=== PATIENT | male | born 1955 | race American Indian/Alaskan Native ===

== ENCOUNTER 2018-08-13 20:49 | Inpatient (IN) | payer MEDICAID ==
[2018-08-13] MEDS ORDERED: ASPIRIN PO ONE (21:02)
--- NOTE | 2018-08-13 21:06 | Emergency Department Report ---
ED General Adult HPI - General Chief complaint: Arrhythmia/Palpitations Stated complaint: CHEST PAIN Time Seen by Provider: 08/13/18 20:49 Source: EMS Mode of arrival: Stretcher Limitations: No Limitations - History of Present Illness Initial comments: Patient is a 63-year-old male that brought in by EMS for chest pain/shortness of breath. Report received from EMS. Patient's initial complaint was chest pain and shortness of breath. Per EMS patient was initially in A. fib A flutter and went into V. tach and then V. fib and was unresponsive with no pulse. Patient was delivered 1 shock and had spontaneous return of circulation and became responsive again immediately after shock delivered. Patient currently is alert and oriented 3 and is answering questions appropriately. Patient is still complaining of shortness of breath and fatigue. Patient states his chest pain is a 6 out of 10 and is nonradiating. Patient states that pain is better with rest and worse with exertion. Patient states his shortness of breath is better with rest and worse with exertion. Patient denies having a past medical history. -: Sudden Location: chest Severity scale (0 -10): 6 Associated Symptoms: chest pain, malaise, shortness of breath. denies: confusi on, cough, diaphoresis, fever/chills, headaches, loss of appetite, nausea/vomiting, rash, seizure, syncope, weakness - Related Data Allergies Allergy/AdvReac Type Severity Reaction Status Date / Time No Known Allergies Allergy Unverified 08/13/18 21:02 ED Review of Systems ROS: Stated complaint: CHEST PAIN Other details as noted in HPI Constitutional: malaise. denies: chills, fever Eyes: denies: eye pain, eye discharge, vision change ENT: denies: ear pain, throat pain Respiratory: shortness of breath. denies: cough, wheezing Cardiovascular: chest pain, palpitations Endocrine: no symptoms reported Gastrointestinal: denies: abdominal pain, nausea, diarrhea Genitourinary: denies: urgency, dysuria Musculoskeletal: denies: back pain, joint swelling, arthralgia Skin: denies: rash, lesions Neurological: denies: headache, weakness, paresthesias Psychiatric: denies: anxiety, depression Hematological/Lymphatic: denies: easy bleeding, easy bruising ED Past Medical Hx - Past Medical History Previous Medical History?: Yes Additional medical history: appendicitis - Surgical History Past Surgical History?: Yes Hx Appendectomy: Yes Additional Surgical History: spleen surgery - Family History Family history: no significant - Social History Smoking Status: Current Every Day Smoker Substance Use Type: Alcohol ED Physical Exam - General Limitations: No Limitations General appearance: alert, in no apparent distress - Head Head exam: Present: atraumatic, normocephalic - Eye Eye exam: Present: normal appearance - ENT ENT exam: Present: mucous membranes moist - Neck Neck exam: Present: normal inspection - Respiratory Respiratory exam: Present: normal lung sounds bilaterally. Absent: respiratory distress - Cardiovascular Cardiovascular Exam: Present: regular rate, normal rhythm. Absent: systolic murmur, diastolic murmur, rubs, gallop - GI/Abdominal GI/Abdominal exam: Present: soft, normal bowel sounds - Rectal Rectal exam: Present: deferred - Extremities Exam Extremities exam: Present: normal inspection - Back Exam Back exam: Present: normal inspection - Neurological Exam Neurological exam: Present: alert, oriented X3 - Psychiatric Psychiatric exam: Present: normal affect, normal mood - Skin Skin exam: Present: warm, dry, intact, normal color. Absent: rash ED Course Vital Signs 08/13/18 08/13/18 08/13/18 20:55 22:49 23:01 Temperature 97.7 F Pulse Rate 120 H 118 H 117 H Respiratory 18 25 H 24 Rate Blood Pressure 114/82 O2 Sat by Pulse 100 98 97 Oximetry 08/13/18 08/13/18 08/13/18 23:15 23:31 23:45 Temperature Pulse Rate 117 H 115 H 107 H Respiratory 33 H 26 H 25 H Rate Blood Pressure 116/82 116/82 95/54 O2 Sat by Pulse 100 93 Oximetry 08/13/18 08/14/18 08/14/18 23:51 00:00 00:43 Temperature Pulse Rate 105 H 110 H Respiratory 22 24 Rate Blood Pressure 95/54 95/54 99/74 O2 Sat by Pulse 95 98 100 Oximetry 08/14/18 08/14/18 08/14/18 00:45 01:00 01:15 Temperature Pulse Rate 100 H 107 H 108 H Respiratory 16 18 Rate Blood Pressure 108/81 117/90 114/91 O2 Sat by Pulse 100 99 99 Oximetry 08/14/18 01:30 Temperature Pulse Rate 109 H Respiratory 19 Rate Blood Pressure 117/91 O2 Sat by Pulse 98 Oximetry - Reevaluation(s) Reevaluation #1: Initial evaluation done. EKG strips from EMS reviewed. Report received from EMS. He hypoxic and is on a nonrebreather. 08/13/18 20:45 Patient is resting comfortably in bed. 08/13/18 22:09 Patient is complaining of chest pain and lightheadedness. Patient will be given morphine. EKG repeated and is unchanged. we'll consult cardiology 08/13/18 23:18 pt given amiodarone bolus and patient is feeling better. Patient was taken off is not rebreather and placed on a nasal cannula and patient is hypoxic. Patient was placed back on a nonrebreather. 08/13/18 23:49 Discussed all results with patient. Patient states he is feeling better. Patient transitioned to 5 L nasal cannula. Patient maintaining oxygen saturation of 93-94%. Patient will be admitted to the hospitalist service. Patient agrees to plan of care and admission. 08/14/18 01:41 - Consultations Consultation #1: Cardiology gas operations superintendent paged 08/13/18 23:[address] Ramirez. [address]. Ramirez agrees with amiodarone drip 08/13/18 23:23 Consultation #2: Hospitalist consult for admission. Hospitalist to assume care of the patient and admit patient. 08/14/18 01:42 - EJ/Peripheral Line Neck R Time Out Performed: Yes Indications: nurses unable to establis Skin Cleansed in Sterile Fashion: Yes Size: 20 Dressing Placed: Tegaderm Patient Tolerated Procedure: well ED Medical Decision Making - Lab Data Result diagrams: 08/13/18 21:47 08/13/18 21:42 - EKG Data -: EKG Interpreted by Md EKG shows normal: sinus rhythm, axis, intervals, QRS complexes, ST-T waves Rate: tachycardia - EKG Data Interpretation: LVH - Radiology Data Radiology results: report reviewed PROCEDURE: XR CHEST 1V AP TECHNIQUE: Single AP view of the chest HISTORY: Chest Pain COMPARISONS: None FINDINGS: There is faint patchy right lower lobe airspace opacity. No effusion or pneumothorax. The cardiomediastinal silhouette is unremarkable. No focal osseous lesions are seen. IMPRESSION: Faint patchy right lower lobe airspace opacity. PROCEDURE: CT ANGIOGRAM OF THE CHEST FOR PULMONARY EMBOLISM TECHNIQUE: Computerized axial tomographic angiography of the chest and pulmonary arteries was performed after the IV injection of iodinated nonionic contrast. The image data was postprocessed using maximum intensity projection (MIP) and 2-dimensional multiplanar reformatted (MPR) techniques. The examination is specifically tailored to the evaluation of the pulmonary arteries per clinical request. Automated exposure control, adjustment of mA and/or kV according to patient size, or iterative reconstruction dose optimization techniques were utilized. CPT G9637, 58529 HISTORY: Shortness of breath R06.02, chest pain unspecified R07.9 , COMPARISONS: None . FINDINGS: Heart and pericardium: Normal. Thoracic aorta: Thoracic aorta is normal in caliber.. Pulmonary vasculature: There is no demonstrated pulmonary embolism.. Lymph nodes: No enlarged thoracic lymph nodes. Lungs: The lungs are expanded. There is pulmonary edema at the lung bases. There are multifocal pulmonary infiltrates.. Pleural space: There are small bilateral pleural effusions. There is no pneumothorax.. Musculoskeletal structures: No significant abnormality. Upper abdominal structures: No significant abnormality. IMPRESSION: Thoracic aorta is normal in caliber.. There is no demonstrated pulmonary embolism.. The lungs are expanded. There is pulmonary edema at the lung bases. There are multifocal pulmonary infiltrates.. There are small bilateral pleural effusions. There is no pneumothorax... - Medical Decision Making Patient is 63-year-old male that presents emergent with chest pain shortness of breath. Patient in route with EMS had a cardiac arrest of V. fib and was shocked 1 time and had a spontaneous return of circulation. Patient will be admitted to the hospitalist service. Patient found to have CHF changes on CTA and chest x-ray. Patient has an elevated BNP. Prior to today patient has no p ast medical history except smoking. Patient's troponin negative. Patient has an elevated potassium. I discussed the case with cardiology and cardiology agrees with amiodarone drip and bolus. Patient was placed on amiodarone drip and his symptoms improved. Patient's oxygenation and heart rate improved. Patient initially found to have a lactic acidosis but that improved with treatment. - Differential Diagnosis chest pain. Shortness of breath. Cardiac arrest. V. fib. Critical Care Time: Yes Critical care attestation.: If time is entered above; I have spent that time in minutes in the direct care of this critically ill patient, excluding procedure time. Critical Care Time: 65 minutes ED Disposition Clinical Impression: Ventricular fibrillation, SOB (shortness of breath), Cardiac arrest, Elevated brain natriuretic peptide (BNP) level, Lactic acid acidosis, Hypoxia, Hyperkalemia Chest pain Qualifiers: Chest pain type: unspecified Qualified Code(s): R07.9 - Chest pain, unspecified CHF (congestive heart failure) Qualifiers: Heart failure type: unspecified Heart failure chronicity: acute Qualified Code(s): I50.9 - Heart failure, unspecified Pulmonary edema Qualifiers: Chronicity: acute Qualified Code(s): J81.0 - Acute pulmonary edema Disposition: 09 OP ADMIT IP TO THIS HOSP Is pt being admited?: Yes Does the pt Need Aspirin: No Condition: Critical Instructions: Chest Pain (ED), Pulmonary Edema (ED) Time of Disposition: 01:41
--- NOTE | 2018-08-13 22:08 | XRay Report ---
PROCEDURE: XR CHEST 1V AP TECHNIQUE: Single AP view of the chest HISTORY: Chest Pain COMPARISONS: None FINDINGS: There is faint patchy right lower lobe airspace opacity. No effusion or pneumothorax. The cardiomedia stinal silhouette is unremarkable. No focal osseous lesions are seen. IMPRESSION: Faint patchy right lower lobe airspace opacity. This document is electronically signed by Emma Paz MD., August 13 2018 10:06:44 PM ET
[2018-08-13 22:09] LABS: Basophils # (Auto) 0.1 K/mm3 (0.0-0.1); Basophils % (Auto) 0.9 % (0.0-1.8); Eosinophils # (Auto) 0.1 K/mm3 (0.0-0.4); Eosinophils % (Auto) 0.8 % (0.0-4.3); Lymphocytes # (Auto) 4.1 K/mm3 (1.2-5.4); Lymphocytes % (Auto) 30.3 % (13.4-35.0); Mean Corpuscular HGB Conc 36 % (32-34); Mean Corpuscular Volume 96 fl (84-94); Monocytes # (Auto) 0.9 K/mm3 (0.0-0.8); Monocytes % (Auto) 6.6 % (0.0-7.3); Platelet Count 356 K/mm3 (140-440); Red Blood Count 4.42 M/mm3 (3.65-5.03); Red Cell Distribution Width 13.7 % (13.2-15.2)
[2018-08-13 22:16] LABS: Hematocrit 42.2 % (35.5-45.6); Hemoglobin 15.2 gm/dl (11.8-15.2)
[2018-08-13 22:26] LABS: BUN/Creatinine Ratio 18; Blood Urea Nitrogen 24 mg/dL (9-20); Calcium 9.5 mg/dL (8.4-10.2); Hemolysis Index 26
[2018-08-13 22:30] LABS: Alanine Aminotransferase 18 units/L (7-56); Albumin 3.4 g/dL (3.9-5)
[2018-08-13 22:34] LABS: Bilirubin,Direct < 0.2 mg/dL (0-0.2)
[2018-08-13] MEDS ORDERED: MORPHINE IV ONE ×2 (22:53→23:40)
[2018-08-13] MEDS ORDERED: CORDARONE 150 MG in D5W 97 ML IV ONE (23:23)
[2018-08-13] MEDS ORDERED: CORDARONE IV ONE (23:31)
[2018-08-13] MEDS: CORDARONE 900 MG in D5W 482 ML IV SCH (23:53)
--- NOTE | 2018-08-14 01:30 | Cat Scan Report ---
PROCEDURE: CT ANGIOGRAM OF THE CHEST FOR PULMONARY EMBOLISM TECHNIQUE: Computerized axial tomographic angiography of the chest and pulmonary arteries was perfor med after the IV injection of iodinated nonionic contrast. The image data was postprocessed using max imum intensity projection (MIP) and 2-dimensional multiplanar reformatted (MPR) techniques. The exami nation is specifically tailored to the evaluation of the pulmonary arteries per clinical request. Au tomated exposure control, adjustment of mA and/or kV according to patient size, or iterative reconstr uction dose optimization techniques were utilized. CPT G9637, 48627 HISTORY: Shortness of breath R06.02, chest pain unspecified R07.9 , COMPARISONS: None . FINDINGS: Heart and pericardium: Normal. Thoracic aorta: Thoracic aorta is normal in caliber.. Pulmonary vasculature: There is no demonstrated pulmonary embolism.. Lymph nodes: No enlarged thoracic lymph nodes. Lungs: The lungs are expanded. There is pulmonary edema at the lung bases. There are multifocal pulm onary infiltrates.. Pleural space: There are small bilateral pleural effusions. There is no pneumothorax.. Musculoskeletal structures: No significant abnormality. Upper abdominal structures: No significant abnormality. IMPRESSION: Thoracic aorta is normal in caliber.. There is no demonstrated pulmonary embolism.. The lungs are expanded. There is pulmonary edema at the lung bases. There are multifocal pulmonary in filtrates.. There are small bilateral pleural effusions. There is no pneumothorax... This document is electronically signed by Yemi Fernandez MD., August 14 2018 01:28:24 AM ET
[2018-08-14] MEDS ORDERED: MORPHINE IV ONE ×2 (02:00→13:17)
[2018-08-14] MEDS ORDERED: SODIUM CHLORIDE FLUSH SYRINGE 10 ML IV PRN (02:00)
[2018-08-14] MEDS ORDERED: ZOFRAN IV PRN (02:00)
[2018-08-14] MEDS ORDERED: TYLENOL PO PRN (02:00)
--- NOTE | 2018-08-14 02:11 | History and Physical Report ---
<ROBYN DAMON - Last Filed: 08/14/18 02:54> History of Present Illness Date of examination: 08/14/18 Date of admission: 08/14/2018 Chief complaint: Chest pain History of present illness: Patient is a 63-year-old male with PMHx of Cocain use, cigarette smoking disorder who was brought to the ER by EMS for complaints of chest pain. Patient states that the pain started around 8 PM after he had done a lot of cleaning in his house, the pain was very sharp, located on the left side causing jaw pain and to his left arm. Pt states that the pain was associated with severe SOB, palpitation, diaphoresis and malaise, he was unable to catch his breath. Patient states that he had his roommate call EMS for help because the chest pain was unbearable. Patient states that he never had any prior history of chest pain or cardiac disease, but reports intense family history of heart disease on his mother's side, his grandfather at age 41 of an [place]. Patient was reported to have cardiac arrest in route to the ER and was delivered 1 shock with successful resuscitation. Patient continues to complain of chest pain while in the ER, his first troponin was negative, his BNP was 7485, his EKG showed sinus rhythm with no STEMI criteria. Patient was started on amiodarone drip and admitted for further evaluation of his chest pain. Past History Past Medical History: No medical history Past Surgical History: No surgical history Social history: smoking (1ppd, decreased to 2-4 cigarette pd.), other Family history: cancer (mother breast ca, paternal grandfather at 41 of [place]) Medications and Allergies Allergies Allergy/AdvReac Type Severity Reaction Status Date / Time No Known Allergies Allergy Unverified 08/13/18 21:02 Active Meds: Active Medications Acetaminophen (Tylenol) 650 mg PO Q4H PRN PRN Reason: Pain MILD(1-3)/Fever >100.5/WOODY Atorvastatin Calcium (Lipitor) 20 mg PO QHS REGGIE Enoxaparin Sodium (Lovenox) 40 mg SUB-Q QDAY REGGIE Amiodarone HCl 900 mg/ (Dextrose) 500 mls @ 33.333 mls/hr IV DIRECT REGGIE; Protocol Last Admin: 08/13/18 23:53 Dose: 1 mg/min, 33.333 mls/hr Documented by: Ondansetron HCl (Zofran) 4 mg IV Q8H PRN PRN Reason: Nausea And Vomiting Sodium Chloride (Sodium Chloride Flush Syringe 10 Ml) 10 ml IV BID REGGIE Sodium Chloride (Sodium Chloride Flush Syringe 10 Ml) 10 ml IV PRN PRN PRN Reason: LINE FLUSH Review of Systems Cardiovascular: chest pain Respiratory: shortness of breath Exam - Constitutional Vitals: Temp Pulse Resp BP Pulse Ox 97.7 F 109 H 19 117/91 98 08/13/18 20:55 08/14/18 01:30 08/14/18 01:30 08/14/18 01:30 08/14/18 01:30 General appearance: Present: no acute distress - EENT Eyes: Present: PERRL, EOM intact ENT: hearing intact - Neck Neck: Present: normal ROM - Respiratory Respiratory effort: normal Respiratory: bilateral: diminished - Cardiovascular Rhythm: regular Heart Sounds: Present: S1 & S2 - Extremities Extremities: no ischemia Extremity abnormal: edema - Abdominal General gastrointestinal: Present: non-tender, non-distended Male genitourinary: Present: deferred - Rectal Rectal Exam: deferred - Integumentary Integumentary: Present: warm, dry - Musculoskeletal Musculoskeletal: strength equal bilaterally - Psychiatric Psychiatric: appropriate mood/affect - Neurologic Neurologic: moves all extremities - Allied Health Allied health notes reviewed: social work Results - Labs CBC & Chem 7: 08/13/18 21:47 08/13/18 21:42 Labs: Laboratory Last Values WBC 13.4 K/mm3 (4.5-11.0) H 08/13/18 21:47 RBC 4.42 M/mm3 (3.65-5.03) 08/13/18 21:47 Hgb 15.2 gm/dl (11.8-15.2) 08/13/18 21:47 Hct 42.2 % (35.5-45.6) 08/13/18 21:47 MCV 96 fl (84-94) H 08/13/18 21:47 MCH 34 pg (28-32) H 08/13/18 21:47 MCHC 36 % (32-34) H 08/13/18 21:47 RDW 13.7 % (13.2-15.2) 08/13/18 21:47 Plt Count 356 K/mm3 (140-440) 08/13/18 21:47 Lymph % (Auto) 30.3 % (13.4-35.0) 08/13/18 21:47 Trigg % (Auto) 6.6 % (0.0-7.3) 08/13/18 21:47 Eos % (Auto) 0.8 % (0.0-4.3) 08/13/18 21:47 Baso % (Auto) 0.9 % (0.0-1.8) 08/13/18 21:47 Lymph # 4.1 K/mm3 (1.2-5.4) 08/13/18 21:47 Trigg # 0.9 K/mm3 (0.0-0.8) H 08/13/18 21:47 Eos # 0.1 K/mm3 (0.0-0.4) 08/13/18 21:47 Baso # 0.1 K/mm3 (0.0-0.1) 08/13/18 21:47 Seg Neutrophils % 61.4 % (40.0-70.0) 08/13/18 21:47 Seg Neutrophils # 8.3 K/mm3 (1.8-7.7) H 08/13/18 21:47 Sodium 140 mmol/L (137-145) 08/13/18 21:42 Potassium 5.3 mmol/L (3.6-5.0) H 08/13/18 21:42 Chloride 103.5 mmol/L (98-107) 08/13/18 21:42 Carbon Dioxide 22 mmol/L (22-30) 08/13/18 21:42 Anion Gap 20 mmol/L 08/13/18 21:42 BUN 24 mg/dL (9-20) H 08/13/18 21:42 Creatinine 1.3 mg/dL (0.8-1.5) 08/13/18 21:42 Estimated GFR > 60 ml/min 08/13/18 21:42 BUN/Creatinine Ratio 18 % 08/13/18 21:42 Glucose 142 mg/dL (75-100) H 08/13/18 21:42 Lactic Acid 1.60 mmol/L (0.7-2.0) 08/13/18 23:42 Calcium 9.5 mg/dL (8.4-10.2) 08/13/18 21:42 Magnesium 2.00 mg/dL (1.7-2.3) 08/13/18 23:28 Total Bilirubin 0.50 mg/dL (0.1-1.2) 08/13/18 21:42 Direct Bilirubin < 0.2 mg/dL (0-0.2) 08/13/18 21:42 Indirect Bilirubin 0.3 mg/dL 08/13/18 21:42 AST 24 units/L (5-40) 08/13/18 21:42 ALT 18 units/L (7-56) 08/13/18 21:42 Alkaline Phosphatase 103 units/L (35-129) 08/13/18 21:42 Troponin T < 0.010 ng/mL (0.00-0.029) 08/14/18 00:10 NT-Pro-B Natriuret Pep 7485 pg/mL (0-900) H 08/13/18 21:42 Total Protein 6.9 g/dL (6.3-8.2) 08/13/18 21:42 Albumin 3.4 g/dL (3.9-5) L 08/13/18 21:42 Albumin/Globulin Ratio 1.0 % 08/13/18 21:42 Assessment and Plan Assessment and plan: 1. Chest pain/acute ACS 2. Postcardiac arrest 3. CHF (BNP 7485) 4. Tobacco use disorder Plan: Admit patient for acute ACS Continue cardiac enzymes Q6HR2 Monitor cardiac rhythm/ VS Continue amiodarone drip Lasix IV every 12 hours 3 doses CHF IV morphine when necessary for chest pain consult cardiology for evaluation Smoking cessation, counselled DVT prophylaxis with Lovenox Plan of care discussed with patient, who voiced understanding Patient's condition and plan of care and discuss with Dr. Yeh Advance Directives: Yes VTE prophylaxis?: Mechanical Plan of care discussed with patient/family: Yes <LIAM YEH - Last Filed: 08/15/18 02:14> History of Present Illness Date of admission: 08/14/18 01:47 Medications and Allergies Active Meds: Active Medications Acetaminophen (Tylenol) 650 mg PO Q4H PRN PRN Reason: Pain MILD(1-3)/Fever >100.5/WOODY Aspirin (Ecotrin) 325 mg PO QDAY REGGIE Atorvastatin Calcium (Lipitor) 20 mg PO QHS REGGIE Enoxaparin Sodium (Lovenox) 40 mg SUB-Q QDAY REGGIE Furosemide (Lasix) 20 mg IV 0600,1800 REGGIE Amiodarone HCl 900 mg/ (Dextrose) 500 mls @ 33.333 mls/hr IV DIRECT REGGIE; Protocol Last Admin: 08/13/18 23:53 Dose: 1 mg/min, 33.333 mls/hr Documented by: Piperacillin Sod/Tazobactam Sod (Zosyn/Ns 4.5gm/100ml) 4.5 gm in 100 mls @ 200 mls/hr IV Q8HR REGGIE; Protocol Morphine Sulfate (Morphine) 2 mg IV Q3H PRN PRN Reason: Chest Pain Ondansetron HCl (Zofran) 4 mg IV Q8H PRN PRN Reason: Nausea And Vomiting Sodium Chloride (Sodium Chloride Flush Syringe 10 Ml) 10 ml IV BID REGGIE Sodium Chloride (Sodium Chloride Flush Syringe 10 Ml) 10 ml IV PRN PRN PRN Reason: LINE FLUSH Exam - Constitutional Vitals: Temp Pulse Resp BP Pulse Ox 97.7 F 109 H 19 117/91 98 08/13/18 20:55 08/14/18 01:30 08/14/18 01:30 08/14/18 01:30 08/14/18 01:30 Results - Labs CBC & Chem 7: 08/14/18 15:19 08/13/18 21:42 Labs: Laboratory Last Values WBC 13.4 K/mm3 (4.5-11.0) H 08/13/18 21:47 RBC 4.42 M/mm3 (3.65-5.03) 08/13/18 21:47 Hgb 15.2 gm/dl (11.8-15.2) 08/13/18 21:47 Hct 42.2 % (35.5-45.6) 08/13/18 21:47 MCV 96 fl (84-94) H 08/13/18 21:47 MCH 34 pg (28-32) H 08/13/18 21:47 MCHC 36 % (32-34) H 08/13/18 21:47 RDW 13.7 % (13.2-15.2) 08/13/18 21:47 Plt Count 356 K/mm3 (140-440) 08/13/18 21:47 Lymph % (Auto) 30.3 % (13.4-35.0) 08/13/18 21:47 Trigg % (Auto) 6.6 % (0.0-7.3) 08/13/18 21:47 Eos % (Auto) 0.8 % (0.0-4.3) 08/13/18 21:47 Baso % (Auto) 0.9 % (0.0-1.8) 08/13/18 21:47 Lymph # 4.1 K/mm3 (1.2-5.4) 08/13/18 21:47 Trigg # 0.9 K/mm3 (0.0-0.8) H 08/13/18 21:47 Eos # 0.1 K/mm3 (0.0-0.4) 08/13/18 21:47 Baso # 0.1 K/mm3 (0.0-0.1) 08/13/18 21:47 Seg Neutrophils % 61.4 % (40.0-70.0) 08/13/18 21:47 Seg Neutrophils # 8.3 K/mm3 (1.8-7.7) H 08/13/18 21:47 Sodium 140 mmol/L (137-145) 08/13/18 21:42 Potassium 5.3 mmol/L (3.6-5.0) H 08/13/18 21:42 Chloride 103.5 mmol/L (98-107) 08/13/18 21:42 Carbon Dioxide 22 mmol/L (22-30) 08/13/18 21:42 Anion Gap 20 mmol/L 08/13/18 21:42 BUN 24 mg/dL (9-20) H 08/13/18 21:42 Creatinine 1.3 mg/dL (0.8-1.5) 08/13/18 21:42 Estimated GFR > 60 ml/min 08/13/18 21:42 BUN/Creatinine Ratio 18 % 08/13/18 21:42 Glucose 142 mg/dL (75-100) H 08/13/18 21:42 Lactic Acid 1.60 mmol/L (0.7-2.0) 08/13/18 23:42 Calcium 9.5 mg/dL (8.4-10.2) 08/13/18 21:42 Magnesium 2.00 mg/dL (1.7-2.3) 08/13/18 23:28 Total Bilirubin 0.50 mg/dL (0.1-1.2) 08/13/18 21:42 Direct Bilirubin < 0.2 mg/dL (0-0.2) 08/13/18 21:42 Indirect Bilirubin 0.3 mg/dL 08/13/18 21:42 AST 24 units/L (5-40) 08/13/18 21:42 ALT 18 units/L (7-56) 08/13/18 21:42 Alkaline Phosphatase 103 units/L (35-129) 08/13/18 21:42 Troponin T < 0.010 ng/mL (0.00-0.029) 08/14/18 00:10 NT-Pro-B Natriuret Pep 7485 pg/mL (0-900) H 08/13/18 21:42 Total Protein 6.9 g/dL (6.3-8.2) 08/13/18 21:42 Albumin 3.4 g/dL (3.9-5) L 08/13/18 21:42 Albumin/Globulin Ratio 1.0 % 08/13/18 21:42 Assessment and Plan Assessment and plan: 63-year-old man with no medical problems, similar emergency room with complaints of chest pain, left chest, radiating to the left arm, jaw constant, started last night. In route to the hospital he went into cardiac arrest /V. fib, was shocked once with good results. He was started on amiodarone drip in the emergency room. A CT significant for pulmonary infiltrates, pleural effusion. Start IV Zosyn, IV Lasix, aspirin. Cardiology was consulted to see the patient, agree with cardiac enzymes, check echo. patient seen and examined with nurse pra ctitioner Review of systems Constitutional: no weight loss, chills, fever Ears, eyes, nose, mouth and throat: no nasal congestion, no nasal discharge, no sinus pressure, no vision change, no red eye. Neck: No neck pain or rigidity. Cardiovascular: no palpitations, +chest pain Respiratory: no cough, +shortness of breath Gastrointestinal: no hematochezia, abdominal pain Genitourinary : no frequency , no hematuria Musculoskeletal: no joint swelling or muscle ache Integumentary: no rash, no pruritis Neurological: no parathesias, no focal weakness Endocrine: no cold or heat intolerance, no polyuria or polydipsia Hematologic/Lymphatic: no easy bruising, no easy bleeding, no gland swelling Allergic/Immunologic: no urticaria, no angioedema.
[2018-08-14] MEDS ORDERED: XANAX PO ONE (03:30)
[2018-08-14] MEDS ORDERED: XANAX ONE (03:39)
[2018-08-14] MEDS ORDERED: MORPHINE IV PRN (03:39)
[2018-08-14 04:21] LABS: Chol/HDL Ratio 3.97 %
[2018-08-14] MEDS: ZOSYN/NS 4.5GM/100ML 4.5 GM/100 ML VIAL IV SCH ×3 (04:46→15:00)
[2018-08-14] MEDS ORDERED: NS IV ONE (04:47)
[2018-08-14] MEDS ORDERED: ZOSYN IV ONE (04:47)
[2018-08-14 05:06] LABS: Creatine Kinase MB 18.9 ng/mL (0.0-4.0)
[2018-08-14 05:26] LABS: Bacteria,Urine 1+ /HPF (Negative); Bilirubin,Urine NEG (Negative); Blood,Urine NEG (Negative); Color,Urine Amber (Yellow); Mucus,Urine 3+ /HPF
[2018-08-14] MEDS ORDERED: LASIX IV SCH ×3 (06:00→10:34)
[2018-08-14] MEDS ORDERED: LASIX ONE ×2 (06:40→10:06)
--- NOTE | 2018-08-14 09:09 | Consultation ---
History of Present Illness Consult date: 08/14/18 Requesting physician: MEREDITH LARA III Consult reason: cardiac arrest History of present illness: The patient is a 63-year-old male with a past medical history of ? methamphetamine use, cocaine use, tobacco use. He is previously unknown to our practice, he does not see doctors regularly. He presented via EMS with c/o chest pain and SOB. He states that for the past 4 days, he has been experiencing intermittent left-sided weakness with left-sided jaw pain. Approx 24 hours ago, he developed constant substernal burning which he thought was indigestion. Yesterday evening around 8PM he suddenly developed intense midsternal chest pressure and severe SOB with diaphoresis and palpitations and told his roommate to call EMS. He admits that over the past several days he has been smoking "rocks" which look like meth but he thinks they were "fake meth". Patient was riding in ambulance when he states "everything went black". He did suffer VF cardiac arrest in the field (strips available for review on chart) and was reportedly shocked once with ROSC. He was initiated on amio gtt following arrival to ED. On evaluation, he appears pale, diaphoretic and SOB. ECG with NSR with no acute ischemic changes. Initial trop negative and second minimally elevated. Pro-BNP elevated and CXR and chest CTA c/w HF, negative for PE. He was taken to [facility] for coronary angiography. Past History Past Medical History: No medical history Past Surgical History: No surgical history Social history: smoking, other (methamphetamine and cocaine use) Family history: CAD Medications and Allergies Allergies Allergy/AdvReac Type Severity Reaction Status Date / Time No Known Allergies Allergy Unverified 08/13/18 21:02 Active Meds: Active Medications Acetaminophen (Tylenol) 650 mg PO Q4H PRN PRN Reason: Pain MILD(1-3)/Fever >100.5/WOODY Aspirin (Ecotrin) 325 mg PO QDAY REGGIE Atorvastatin Calcium (Lipitor) 20 mg PO QHS REGGIE Enoxaparin Sodium (Lovenox) 40 mg SUB-Q QDAY REGGIE Furosemide (Lasix) 20 mg IV 0600,1800 REGGIE Last Admin: 08/14/18 06:47 Dose: 20 mg Documented by: Amiodarone HCl 900 mg/ (Dextrose) 500 mls @ 33.333 mls/hr IV DIRECT REGGIE; Protocol Last Titration: 08/14/18 07:15 Dose: 0.5 mg/min, 16.667 mls/hr Documented by: Piperacillin Sod/Tazobactam Sod (Zosyn/Ns 4.5gm/100ml) 4.5 gm in 100 mls @ 200 mls/hr IV Q8HR REGGIE; Protocol Last Admin: 08/14/18 06:56 Dose: 200 mls/hr Documented by: Sodium Chloride (Nacl 0.9% 500 Ml) 500 mls @ 50 mls/hr IV DIRECT REGGIE Stop: 08/14/18 19:59 Morphine Sulfate (Morphine) 2 mg IV Q3H PRN PRN Reason: Chest Pain Last Admin: 08/14/18 03:40 Dose: 2 mg Documented by: Ondansetron HCl (Zofran) 4 mg IV Q8H PRN PRN Reason: Nausea And Vomiting Sodium Chloride (Sodium Chloride Flush Syringe 10 Ml) 10 ml IV BID REGGIE Sodium Chloride (Sodium Chloride Flush Syringe 10 Ml) 10 ml IV PRN PRN PRN Reason: LINE FLUSH Review of Systems Constitutional: sweats, weakness (intermittent left-sided weakness), no weight loss, no weight gain, no fever, no chills Ears, nose, mouth and throat: no ear pain, no nose pain, no sinus pressure, no sinus pain Cardiovascular: chest pain, palpitations, shortness of breath, dyspnea on exertion, decreased exercise tolerance, no orthopnea, no edema, no syncope, no high blood pressure Respiratory: shortness of breath, dyspnea on exertion, no cough, no congestion, no wheezing, no pain on inspiration Gastrointestinal: no abdominal pain, no nausea, no vomiting, no diarrhea, no constipation, no change in bowel habits Genitourinary Male: no dysuria, no hematuria, no flank pain, no discharge, no urinary frequency, no urinary hesitancy Musculoskeletal: no neck stiffness, no neck pain, no shooting arm pain, no arm numbness/tingling, no low back pain, no shooting leg pain Integumentary: no rash, no pruritis, no redness, no sores, no wounds Neurological: no head injury, no paralysis, no weakness, no parathesias, no numbness, no tingling, no seizures, no syncope Psychiatric: no anxiety Endocrine: no cold intolerance, no heat intolerance Hematologic/Lymphatic: no easy bruising, no easy bleeding Allergic/Immunologic: no urticaria, no wheezing Physical Examination Vital Signs Temp Pulse Resp BP Pulse Ox 97.7 F 120 H 18 114/82 100 08/13/18 20:55 08/13/18 20:55 08/13/18 20:55 08/13/18 20:55 08/13/18 20:55 General appearance: other (SOB) HEENT: Positive: PERRL, Normocephaly, Mucus Membranes Moist Neck: Positive: neck supple, trachea midline Cardiac: Positive: Reg Rate and Rhythm, S1/S2 Lungs: Positive: Decreased Breath Sounds, Rales Neuro: Positive: Grossly Intact Abdomen: Negative: Tender Skin: Negative: Rash, Wound Musculoskeletal: No Pain Extremities: Absent: edema Results 08/13/18 21:47 08/13/18 21:42 Cardiac Enzymes 08/13/18 08/14/18 Range/Units 21:42 03:20 AST 24 (5-40) units/L CK-MB (CK-2) 18.9 H (0.0-4.0) ng/mL Lipids 08/14/18 Range/Units 03:20 Triglycerides 62 (2-149) mg/dL Cholesterol 139 (50-199) mg/dL HDL Cholesterol 35 L (40-59) mg/dL Cholesterol/HDL Ratio 3.97 % CBC 08/13/18 Range/Units 21:47 WBC 13.4 H (4.5-11.0) K/mm3 RBC 4.42 (3.65-5.03) M/mm3 Hgb 15.2 (11.8-15.2) gm/dl Hct 42.2 (35.5-45.6) % Plt Count 356 (140-440) K/mm3 Lymph # 4.1 (1.2-5.4) K/mm3 [place] # 0.9 H (0.0-0.8) K/mm3 Eos # 0.1 (0.0-0.4) K/mm3 Baso # 0.1 (0.0-0.1) K/mm3 Comprehensive Metabolic Panel 08/13/18 08/13/18 Range/Units 21:42 21:42 Sodium 140 (137-145) mmol/L Potassium 5.3 H (3.6-5.0) mmol/L Chloride 103.5 (98-107) mmol/L Carbon Dioxide 22 (22-30) mmol/L BUN 24 H (9-20) mg/dL Creatinine 1.3 (0.8-1.5) mg/dL Glucose 142 H (75-100) mg/dL Calcium 9.5 (8.4-10.2) mg/dL Direct Bilirubin < 0.2 (0-0.2) mg/dL Indirect Bilirubin 0.3 mg/dL AST 24 (5-40) units/L ALT 18 (7-56) units/L Alkaline Phosphatase 103 (35-129) units/L Total Protein 6.9 (6.3-8.2) g/dL Albumin 3.4 L (3.9-5) g/dL - Imaging and Cardiology Echo: pending Cardiac cath: pending EKG: report reviewed, image reviewed EKG interpretations - Telemetry EKG Rhythm: Sinus Rhythm - EKG Sinus rhythms and dysrhythmias: sinus rhythm Chamber hypertrophy or enlargement: left ventricular hypertro Assessment and Plan S/p LHC and RHC which showed tight mid RCA lesion, EF 10-15%, CO 1.69. No PCI at this time. Cont ASA and statin. Initiate milrinone gtt and tx to CCU. Cont IV lasix BID. No BB or ACEI/ARB at this time in setting of borderline hypotension. If pt does not clinically improve, he may ultimately require transfer to [facility] heart failure service. The patient has been seen in conjunction with Dr. Burnett who agrees with the assessment and plan of care. - Patient Problems (1) Cardiac arrest Current Visit: Yes Status: Acute (2) Ventricular fibrillation Current Visit: Yes Status: Acute (3) Acute HFrEF (heart failure with reduced ejection fraction) Current Visit: Yes Status: Acute (4) Acute respiratory failure Current Visit: Yes Status: Acute (5) Cardiomyopathy Current Visit: Yes Status: Chronic (6) CAD (coronary artery disease) Current Visit: Yes Status: Chronic (7) Elevated troponin Current Visit: Yes Status: Acute (8) Tobacco use Current Visit: Yes Status: Chronic (9) Illicit drug use Current Visit: Yes Status: Chronic
[2018-08-14] MEDS: CORDARONE 900 MG in D5W 482 ML IV SCH (09:30)
[2018-08-14] MEDS ORDERED: HEPARIN/NS 5000 UNIT/500ML(CATH LAB) 1,000 ML IR ONE (09:38)
[2018-08-14] MEDS ORDERED: XYLOCAINE CARDIAC IV ONE (09:38)
[2018-08-14] MEDS ORDERED: ADRENALIN ONE (09:38)
[2018-08-14] MEDS ORDERED: ATROPINE 0.1% (CARDIAC) ONE ×2 (09:38→09:40)
[2018-08-14] MEDS ORDERED: NITROGLYCERIN SYRINGE 3 ML ONE (09:39)
[2018-08-14] MEDS ORDERED: NEO SYNEPHRINE/NS Syringe(OR USE) IV ONE (09:39)
[2018-08-14] MEDS ORDERED: HEPARIN 10,000 UNITS/10 ML ONE (09:39)
[2018-08-14] MEDS ORDERED: SUBLIMAZE ONE (09:39)
[2018-08-14] MEDS ORDERED: VERSED ONE (09:39)
[2018-08-14] MEDS ORDERED: CALAN ONE (09:39)
[2018-08-14] MEDS ORDERED: XYLOCAINE 2% INFILTRATI ONE (09:39)
[2018-08-14] MEDS ORDERED: NACL 0.9% 500 ML 500 ML ONE (09:40)
[2018-08-14] MEDS ORDERED: ECOTRIN PO SCH (10:00)
[2018-08-14] MEDS ORDERED: SODIUM CHLORIDE FLUSH SYRINGE 10 ML IV SCH (10:00)
[2018-08-14] MEDS ORDERED: NACL 0.9% 500 ML 500 ML IV SCH (10:00)
[2018-08-14] MEDS ORDERED: LOVENOX SUB-Q SCH ×2 (10:00)
[2018-08-14] MEDS ORDERED: MILRINONE-D5W 20 MG/100 ML 20 MG/100 ML BAG IV SCH (11:00)
--- NOTE | 2018-08-14 13:04 | XRay Report ---
PORTABLE CHEST INDICATION: Status post central line placement. COMPARISON: 08/13/2018 FINDINGS: Portable, frontal chest radiograph demonstrates new left IJ catheter tip in the SVC or near its junction. Stable cardiomediastinal silhouette/mild cardiomegaly and somewhat prominent lung markings centrally without significant pleural effusions. Multiple surgical clips in the left upper quadrant are stable as also the osseous structures and EKG leads. Lower cervical fusion hardware incompletely imaged. CONCLUSION: Interval uncomplicated left sided central catheter placement since last night with stable mild cardiomegaly and slight perihilar congestion, as described. Please correlate. Thank you for the opportunity to participate in this patient's care.
[2018-08-14] MEDS ORDERED: MORPHINE ONE (14:00)
[2018-08-14 14:09] LABS: INR 1.61 (0.87-1.13)
[2018-08-14 14:18] LABS: Creatine Kinase MB 46.1 ng/mL (0.0-4.0)
--- NOTE | 2018-08-14 14:48 | Cardiac Catherization Report ---
This is a left heart cath, right heart cath, and a triple lumen catheter being placed on 08/14/2018. CLINICAL INFORMATION: This is a 63-year-old gentleman with history of drug use, who presents to the hospital with chest pain by EMS, had VFib arrest with shock. The patient had abnormal troponin, was brought in with recurrent chest pain with shortness of breath. He is here for left and right heart catheterization and triple lumen catheter. DESCRIPTION OF THE PROCEDURE: The patient was done with moderate sedation, 0.5 mg Versed and 25 mcg fentanyl was given. Sedation start 9:48 a.m. and finished at 10:48 a.m. One hour of supervised sedation. Procedure was performed via the right common femoral artery, sterile technique, local anesthesia, 6-[place] groin sheath placed in right common femoral artery and 8-[place] groin sheath was placed in right common femoral vein. So left system engaged with a JL3.5 catheter, left main is large and patent, bifurcates to large caliber LAD, proximal is patent, goes into a medium caliber diagonal, is patent, and then after that the mid LAD has a 40% smooth lesion. Rest of the LAD is fine and wrapped around LAD. Circumflex medium caliber vessel is patent. OM1 is a medium caliber vessel, it is patent and long. RCA engaged with JR4, proximal patent and mid 2 focal 70% lesions. Distal is patent. PDA is small caliber vessel, patent. LV gram done in TURKISH and LIPSCOMB shows severe LV dysfunction, EF 10%. LVEDP of 45 mmHg, LV is 116/45, aortic is 120_/92. No gradient across the aortic valve on pullback. In view of the patient's severe LV dysfunction, coronary artery disease, out of proportion to the patient's cardiomyopathy, proceeded with right heart catheterization with a [place]-Greg catheter, which revealed aortic saturation was 98%, PA saturation was 32%. RV is 29 and RA is 28. There is no step up, step down noted. PA wedge was 39 mmHg, PA was 59/33, RV was 54/15, RA was 31 mmHg. Cardiac output is 1.69 by Julian and cardiac index 0.83. In view of poor venous access, we placed a triple lumen catheter on the left internal jugular vein, sterile technique, local anesthesia. A triple lumen catheter was successfully passed, all 3 ports had return, no hematoma, no bleeding. Fluoroscopy showed position in SVC. 6 and 8-[place] groin sheaths were discontinued. Manual pressure held. No hematoma, no bleeding. SUMMARY: Left main patent. LAD mid 40% diagonal, patent. Circumflex, OM1 patent. RCA mid 70%, 2 focal lesions. Coronary artery disease is out of proportion, severe LV dysfunction with elevated left end-diastolic pressure, systolic heart failure. The patient's right heart catheterization revealed moderate pulmonary hypertension with severe LV dysfunction with cardiac index of 0.83 and cardiac output 1.69 with PA pressure 59/33, RV of 54/15, RA was 31 mmHg and wedge of 39 mmHg. The patient will be admitted to ICU, will be started on milrinone drip and IV Lasix 40 b.i.d. given. Prognosis is extremely guarded. We will monitor some progression for heart failure if not progressing or we may have to transfer for advanced heart failure. The patient is also in respiratory distress and on 50% Ventimask. JOB# [id number] MARIIA/JELENA LYLES
--- NOTE | 2018-08-14 15:03 | Cat Scan Report ---
CT ABDOMEN AND PELVIS WITHOUT CONTRAST INDICATION: Right flank pain. Status post left heart catheterization. Evaluate for retroperitoneal bleed. COMPARISON: None similar. FINDINGS: Noncontrast abdomen and pelvis CT performed. LUNG BASES: Mild cardiomegaly. No pericardial effusion. Small bilateral pleural effusions and atelectasis appear worse on the right since chest CTA from earlier today, in aggregate measuring approximately 6 cm AP on the right and 4.2 cm on the left as on axial image 20, series 2. Subtle/vague nodularity as in the right middle lobe may also be noted as on axial images 8-12. Mild nonspecific distal esophageal wall prominence/thickening, not excluded for gastroesophageal reflux and/or hiatal hernia, amongst others. ABDOMEN: Please note that sensitivity to detect small visceral lesions is limited due to the absence of intravenous or oral contrast. Renal cortical enhancement with mild excretion into the collecting system and in the urinary bladder though noted from chest CTA performed earlier today. No hydronephrosis. Vicarious contrast excretion in the gallbladder also noted, outlining few small gallstones measuring up to 0.8 cm. Streak artifact from multiple left upper quadrant splenectomy surgical clips again limits exam. Mild perihepatic complex/hyperdense fluid ranging approximately 45-50 HU noted as on axial image 41 as also some in the Salvador's pouch on axial image 68, amongst others. Similar hyperdense fluid may also extend along the paracolic gutters as on axial image 85, amongst others. It may also surround the gallbladder about the alberto hepatis. Grossly unremarkable unenhanced pancreas, adrenals, nonaneurysmal abdominal aorta with few atherosclerotic calcifications and IVC. Diffuse nonspecific/vague retroperitoneal densities also noted aortocaval and left para-aortic as on images 50-100 and not excluded for lymphadenopathy measuring up to 1.9 x 1.6 on axial image 65, amongst others. Subtle left hepatic surface nodularity also questioned on axial image 44. A 1.2 cm round soft tissue nodule-like density also noted anterior to the stomach as on axial image 73, likely a lymph node with few other similar smaller ones also noted more inferiorly as measuring 1 cm on axial image 80. Stomach mild to moderately distended with ingested fluid. Nonopacified GI tract evaluation limited, though grossly nonobstructive. Mild to moderate stool through colon/possible constipation, greatest proximally. As on axial images 104-124, approximately 3.6 x 2.5 cm soft tissue mass/possible lymph node along the adjacent to the proximal ascending colon also not excluded. PELVIS: Mild complex/hemorrhagic pelvic ascites as on axial image 139. Rectosigmoid air and stool. Few small prostatic calcifications. Urinary bladder contrast and air noted surrounding a Romo catheter balloon. Few small foci of air at the right groin puncture site without significant local stranding. Mild lumbar levoscoliosis apex about L2-L3 with endplate irregularities/Schmorl's nodes and degenerative spurring. Disc disease/narrowing also noted, greatest, severe at L3-L4. Possible osteopenia. A 0.9 cm right iliac bone sclerotic focus on axial image 128. Mild lower thoracic spine degenerative spurring as well. CONCLUSION: 1. Mild perihepatic complex fluid density/possible hemorrhagic ascites, new since earlier today, as described above. 2. Mild increased bibasilar opacities. 3. Intra-abdominal mesenteric and retroperitoneal lymphadenopathy suspected as also possible mass or an enlarged lymph node in the right lower quadrant on this limited, unenhanced exam, as described. Neoplastic/metastatic process as lymphoma remains to be excluded in this setting. 4. Various other findings, including cholelithiasis, splenectomy, possible constipation, Romo catheter and lumbar spine degenerative changes, amongst others, as above. I phoned the above results to Mikaela Ozuna, 2:30 PM, 08/14/2018. Thank you for the opportunity to participate in this patient's care.
[2018-08-14 15:35] LABS: Hematocrit 49.2 % (35.5-45.6); Hemoglobin 16.5 gm/dl (11.8-15.2); Mean Corpuscular HGB Conc 34 % (32-34); Mean Corpuscular Volume 96 fl (84-94); Platelet Count 307 K/mm3 (140-440); Red Blood Count 5.11 M/mm3 (3.65-5.03); Red Cell Distribution Width 13.7 % (13.2-15.2)
--- NOTE | 2018-08-14 16:18 | Consultation ---
History of Present Illness Consult date: 08/14/18 Chief complaint: possible intraperitoneal bleed - History of present illness History of present illness: 63 yo M who presented to ER s/p Vfib arrest, witnessed by EMS. Patient was defibrillated and rescusitated. He underwent cardiac cath via R groin and post op complained of lower back pain. Ct scan A/P was performed to r/o ret roperitoneal hematoma which was not seen. However, new perihepatic fluid was noted concerning for possible hematoma. The patient c/o lower back pain across his lumbar and sacral region which started after completion of cardiac cath. He has no complaints of abdominal pain or upper back pain. He feels thirsty and wants to drink something. No n/t of legs. Past History Past Medical History: No medical history Past Surgical History: No surgical history Social history: smoking, other (methamphetamine and cocaine use) Family history: CAD Medications and Allergies Allergies Allergy/AdvReac Type Severity Reaction Status Date / Time No Known Allergies Allergy Unverified 08/13/18 21:02 Active Meds: Active Medications Acetaminophen (Tylenol) 650 mg PO Q4H PRN PRN Reason: Pain MILD(1-3)/Fever >100.5/WOODY Aspirin (Baby Aspirin) 81 mg PO QDAY REGGIE Atorvastatin Calcium (Lipitor) 20 mg PO QHS REGGIE Furosemide (Lasix) 40 mg IV 0600,1800 REGGIE Amiodarone HCl 900 mg/ (Dextrose) 500 mls @ 33.333 mls/hr IV DIRECT REGGIE; Protocol Last Admin: 08/14/18 09:30 Dose: 1 mg/min, 33.333 mls/hr Documented by: Piperacillin Sod/Tazobactam Sod (Zosyn/Ns 4.5gm/100ml) 4.5 gm in 100 mls @ 200 mls/hr IV Q8HR REGGIE; Protocol Last Admin: 08/14/18 15:00 Dose: 200 mls/hr Documented by: Sodium Chloride (Nacl 0.9% 500 Ml) 500 mls @ 50 mls/hr IV DIRECT REGGIE Stop: 08/14/18 19:59 Milrinone Lactate/Dextrose (Milrinone-D5w 20 Mg/100 Ml) 20 mg in 100 mls @ 8.675 mls/hr IV TITR REGGIE Last Admin: 08/14/18 11:30 Dose: 4 mls Documented by: Ondansetron HCl (Zofran) 4 mg IV Q8H PRN PRN Reason: Nausea And Vomiting Sodium Chloride (Sodium Chloride Flush Syringe 10 Ml) 10 ml IV BID REGGIE Sodium Chloride (Sodium Chloride Flush Syringe 10 Ml) 10 ml IV PRN PRN PRN Reason: LINE FLUSH Review of Systems All systems: negative (10 pt ROS performed and negative except for that listed in HPI) Exam Vital Signs Temp Pulse Resp BP Pulse Ox 97.7 F 120 H 18 114/82 100 08/13/18 20:55 08/13/18 20:55 08/13/18 20:55 08/13/18 20:55 08/13/18 20:55 Narrative exam: Gen: AAOx3. NAD ENt: No scleral icterus or conjunctival pallor CV: s1, S2+ resp: even and unlabored. on nonrebreather mask Abd: soft, NT, ND. Well healed surgical scars. R groin dressing c/d/i. Ext: no c/c/e. Mottling of bilateral knees. +Motor and sensory of bilateral lower extremities. Warm extremities back: Pain upon palpation of lumbar spine and perispinal musculature. No upper back or flank TTP. NO CVA tenderness. No ecchymosis of back or flanks Results - Labs 08/14/18 15:19 08/13/18 21:42 Abnormal lab results 08/13/18 08/13/18 08/13/18 Range/Units 21:42 21:42 21:42 WBC (4.5-11.0) K/mm3 RBC (3.65-5.03) M/mm3 Hgb (11.8-15.2) gm/dl Hct (35.5-45.6) % MCV (84-94) fl MCH (28-32) pg MCHC (32-34) % [place] # (0.0-0.8) K/mm3 Seg Neutrophils # (1.8-7.7) K/mm3 PT (12.2-14.9) Sec. INR (0.87-1.13) POC ABG pH (7.35-7.45) Potassium 5.3 H (3.6-5.0) mmol/L BUN 24 H (9-20) mg/dL Glucose 142 H (75-100) mg/dL Lactic Acid 3.00 H* (0.7-2.0) mmol/L Total Creatine Kinase (55-170) units/L CK-MB (CK-2) (0.0-4.0) ng/mL CK-MB (CK-2) Rel Index (0-4) Troponin T (0.00-0.029) ng/mL NT-Pro-B Natriuret Pep 7485 H (0-900) pg/mL Albumin 3.4 L (3.9-5) g/dL HDL Cholesterol (40-59) mg/dL Ur Specific [place] (1.003-1.030) 08/13/18 08/13/18 08/14/18 Range/Units 21:47 22:41 03:20 WBC 13.4 H (4.5-11.0) K/mm3 RBC (3.65-5.03) M/mm3 Hgb (11.8-15.2) gm/dl Hct (35.5-45.6) % MCV 96 H (84-94) fl MCH 34 H (28-32) pg MCHC 36 H (32-34) % [place] # 0.9 H (0.0-0.8) K/mm3 Seg Neutrophils # 8.3 H (1.8-7.7) K/mm3 PT (12.2-14.9) Sec. INR (0.87-1.13) POC ABG pH (7.35-7.45) Potassium (3.6-5.0) mmol/L BUN (9-20) mg/dL Glucose (75-100) mg/dL Lactic Acid 2.10 H* (0.7-2.0) mmol/L Total Creatine Kinase (55-170) units/L CK-MB (CK-2) 18.9 H (0.0-4.0) ng/mL CK-MB (CK-2) Rel Index (0-4) Troponin T 0.076 H D (0.00-0.029) ng/mL NT-Pro-B Natriuret Pep (0-900) pg/mL Albumin (3.9-5) g/dL HDL Cholesterol 35 L (40-59) mg/dL Ur Specific [place] (1.003-1.030) 0408/14/18 08/14/18 Range/Units 05:12 13:20 13:24 WBC (4.5-11.0) K/mm3 RBC (3.65-5.03) M/mm3 Hgb (11.8-15.2) gm/dl Hct (35.5-45.6) % MCV (84-94) fl MCH (28-32) pg MCHC (32-34) % [place] # (0.0-0.8) K/mm3 Seg Neutrophils # (1.8-7.7) K/mm3 PT (12.2-14.9) Sec. INR (0.87-1.13) POC ABG pH 7.313 L (7.35-7.45) Potassium (3.6-5.0) mmol/L BUN (9-20) mg/dL Glucose (75-100) mg/dL Lactic Acid (0.7-2.0) mmol/L Total Creatine Kinase (55-170) units/L CK-MB (CK-2) (0.0-4.0) ng/mL CK-MB (CK-2) Rel Index (0-4) Troponin T 0.470 H* D (0.00-0.029) ng/mL NT-Pro-B Natriuret Pep (0-900) pg/mL Albumin (3.9-5) g/dL HDL Cholesterol (40-59) mg/dL Ur Specific [place] > 1.059 H (1.003-1.030) 08/14/18 08/14/18 08/14/18 Range/Units 13:24 13:24 15:19 WBC 19.4 H (4.5-11.0) K/mm3 RBC 5.11 H (3.65-5.03) M/mm3 Hgb 16.5 H (11.8-15.2) gm/dl Hct 49.2 H D (35.5-45.6) % MCV 96 H (84-94) fl MCH (28-32) pg MCHC (32-34) % [place] # (0.0-0.8) K/mm3 Seg Neutrophils # (1.8-7.7) K/mm3 PT 20.2 H (12.2-14.9) Sec. INR 1.61 H (0.87-1.13) POC ABG pH (7.35-7.45) Potassium (3.6-5.0) mmol/L BUN (9-20) mg/dL Glucose (75-100) mg/dL Lactic Acid (0.7-2.0) mmol/L Total Creatine Kinase 247 H (55-170) units/L CK-MB (CK-2) 46.1 H (0.0-4.0) ng/mL CK-MB (CK-2) Rel Index 18.6 H (0-4) Troponin T (0.00-0.029) ng/mL NT-Pro-B Natriuret Pep (0-900) pg/mL Albumin (3.9-5) g/dL HDL Cholesterol (40-59) mg/dL Ur Specific [place] (1.003-1.030) Diabetes panel 08/13/18 08/13/18 08/14/18 Range/Units 21:42 21:42 03:20 Sodium 140 (137-145) mmol/L Potassium 5.3 H (3.6-5.0) mmol/L Chloride 103.5 (98-107) mmol/L Carbon Dioxide 22 (22-30) mmol/L BUN 24 H (9-20) mg/dL Creatinine 1.3 (0.8-1.5) mg/dL Glucose 142 H (75-100) mg/dL Calcium 9.5 (8.4-10.2) mg/dL AST 24 (5-40) units/L ALT 18 (7-56) units/L Alkaline Phosphatase 103 (35-129) units/L Total Protein 6.9 (6.3-8.2) g/dL Albumin 3.4 L (3.9-5) g/dL Triglycerides 62 (2-149) mg/dL HDL Cholesterol 35 L (40-59) mg/dL Calcium panel 08/13/18 08/13/18 Range/Units 21:42 21:42 Calcium 9.5 (8.4-10.2) mg/dL Albumin 3.4 L (3.9-5) g/dL Pituitary panel 08/13/18 Range/Units 21:42 Sodium 140 (137-145) mmol/L Potassium 5.3 H (3.6-5.0) mmol/L Chloride 103.5 (98-107) mmol/L Carbon Dioxide 22 (22-30) mmol/L BUN 24 H (9-20) mg/dL Creatinine 1.3 (0.8-1.5) mg/dL Glucose 142 H (75-100) mg/dL Calcium 9.5 (8.4-10.2) mg/dL Adrenal panel 08/13/18 08/13/18 Range/Units 21:42 21:42 Sodium 140 (137-145) mmol/L Potassium 5.3 H (3.6-5.0) mmol/L Chloride 103.5 (98-107) mmol/L Carbon Dioxide 22 (22-30) mmol/L BUN 24 H (9-20) mg/dL Creatinine 1.3 (0.8-1.5) mg/dL Glucose 142 H (75-100) mg/dL Calcium 9.5 (8.4-10.2) mg/dL Total Bilirubin 0.50 (0.1-1.2) mg/dL AST 24 (5-40) units/L ALT 18 (7-56) units/L Alkaline Phosphatase 103 (35-129) units/L Total Protein 6.9 (6.3-8.2) g/dL Albumin 3.4 L (3.9-5) g/dL - Imaging CT scan - abdomen: report reviewed, image reviewed CT scan - chest: report reviewed, image reviewed US - abdomen: report reviewed, image reviewed Assessment and Plan 63 yo M s/p cardiac cath, Ct scan concerning for intraabdominal fluid/blood Plan: Patient is stable and has no abdominal complaints. His vital signs are stable. Repeat Hb is 16.5 from 15.2. He was not anticoagulated during cath. His clinical picture does not fit an intraabdominal hemorrhage. 1. may start clear liquids 2. trend Hb 3. monitor VS 4. vascular consult pending per cardiology 5. No plans for emergent surgical intervention. Will follow up with patient in am. D/W Jo Ozuna NP. Thank you, please call with questions.
[2018-08-14 16:58] LABS: Benzodiazepines Screen,Urine PRESUMPTIVE NEGATIVE; Cannabinoid Screen,Urine PRESUMPTIVE NEGATIVE; Cocaine Screen,Urine PRESUMPTIVE NEGATIVE; Methadone Screen,Urine PRESUMPTIVE NEGATIVE; Opiate Screen,Urine PRESUMPTIVE NEGATIVE
[2018-08-14 17:21] LABS: Amphetamine Screen,Urine PRESUMPTIVE POSITIVE
[2018-08-14 17:59] VITALS: BP 96/66
--- NOTE | 2018-08-14 18:08 | Event Note ---
Date: 08/14/18 Assessment and Plan S/p LHC and RHC which showed tight mid RCA lesion, EF 10-15%, Cr 1.69. No PCI at this time. Cont ASA and statin. Initiate milrinone gtt and tx to CCU. Cont IV lasix BID. No BB or ACEI/ARB at this time in setting of borderline hypotension. If pt does not clinically improve, he may ultimately require transfer to [place] heart failure service. - Patient Problems (1) Cardiac arrest Current Visit: Yes Status: Acute (2) Ventricular fibrillation Current Visit: Yes Status: Acute (3) Acute HFrEF (heart failure with reduced ejection fraction) Current Visit: Yes Status: Acute (4) Acute respiratory failure Current Visit: Yes Status: Acute (5) Cardiomyopathy Current Visit: Yes Status: Chronic (6) CAD (coronary artery disease) Current Visit: Yes Status: Chronic (7) Elevated troponin Current Visit: Yes Status: Acute (8) Tobacco use Current Visit: Yes Status: Chronic (9) Illicit drug use Current Visit: Yes Status: Chronic Patient left AMA arond 730 PM Pulled all his lines and signed AMA Patient understands risks involved DIscharge summary dictated
[2018-08-15] MEDS ORDERED: BABY ASPIRIN PO SCH (10:00)
--- NOTE | 2018-09-01 14:38 | Discharge Summary ---
HOSPITAL COURSE: The patient was admitted for chest pain. Chest pain started around 8:00 p.m. on 08/13/2018. The patient had done a lot of cleaning. The patient has extensive family history of coronary artery disease. His grandfather at age of 41 because of NE. His first troponin was negative. His BNP was 7485. The patient was admitted for acute coronary syndrome post-cardiac arrest. The patient was in cardiac arrest was revived. Also, CHF and nicotine dependence. Workup was initiated. The patient had abdomen and pelvic CT which showed a mild perihepatic complex fluid, possible hemorrhagic ascites, mild increased bibasilar opacities, intraabdominal mesenteric and retroperitoneal lymphadenopathy. Various other findings including cholelithiasis, ____ possible constipation. Also, chest CTA was done, which showed chest CTA was negative for pulmonary emboli. Thoracic aorta was normal. No pulmonary embolism, bilateral pleural effusions. No pneumothorax. Chest x-ray showed a left-sided central catheter placement and mild cardiomegaly and perihilar congestion. The patient had a cardiac catheterization also. Cardiac catheterization report, the left main was patent, LAD mid 40% stenosis, diagonal was patent. Circumflex, SUDHAKAR was patent. RCA mid 70% stenosis and two focal lesions. Coronary artery disease is out of proportion. Severe LV dysfunction with elevated left end-diastolic pressure, systolic heart failure. Also, moderate pulmonary hypertension. Hence, it was decided to admit the patient to ICU and started on milrinone drip and IV Lasix. Prognosis was extremely guarded. Surgical consult was requested to rule out retroperitoneal hematoma. Retroperitoneal hematoma was ruled out. Treatment was ongoing and suddenly the patient was to sign out AMA. Around 19:38, the patient was agitated, wanting to go home to see his roommate. The patient took all off his IV line and pressure dressing. No bleeding was observed. The Romo catheter was pulled out with the balloon intact. Refused to receive any care and got dressed and ambulated out of the unit unaccompanied DISCHARGE DIAGNOSES: Severe congestive heart failure, severe coronary artery disease. Hypotension, acute respiratory failure, cardiomyopathy, tobacco use, illicit drug use and elevated troponins. 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 JOB# [id number] DIVYA/JELENA
== END 2018-08-14 19:15 | disposition left against medical advice (07) | DRG 286 ==
LOC: ED 20:49 → CC1 08-14 01:47 → IMCU 08-14 17:38
PROVIDERS: ADMIT Internal Medicine; ATTEND Internal Medicine
PROC: 4A023N8 Measurement of Cardiac Sampling and Pressure, Bilateral, Percutaneous Approach (ICD-10-PCS; principal; 2018-08-14)
PROC: B2111ZZ Fluoroscopy of Multiple Coronary Arteries using Low Osmolar Contrast (ICD-10-PCS; 2018-08-14)
PROC: B2151ZZ Fluoroscopy of Left Heart using Low Osmolar Contrast (ICD-10-PCS; 2018-08-14)
PROC: 02HV33Z Insertion of Infusion Device into Superior Vena Cava, Percutaneous Approach (ICD-10-PCS; 2018-08-14)
PROC: B5181ZA Fluoroscopy of Superior Vena Cava using Low Osmolar Contrast, Guidance (ICD-10-PCS; 2018-08-14)
PROC: 4A033R1 Measurement of Arterial Saturation, Peripheral, Percutaneous Approach (ICD-10-PCS; 2018-08-14)
DX: I48.92 Unspecified atrial flutter (principal); J96.01 Acute respiratory failure with hypoxia; E87.2 Acidosis; I25.10 Atherosclerotic heart disease of native coronary artery without angina pectoris; I50.1 Left ventricular failure, unspecified; I49.01 Ventricular fibrillation; I46.9 Cardiac arrest, cause unspecified; I50.9 Heart failure, unspecified; I42.9 Cardiomyopathy, unspecified; I48.91 Unspecified atrial fibrillation; F17.200 Nicotine dependence, unspecified, uncomplicated; E87.5 Hyperkalemia; F15.90 Other stimulant use, unspecified, uncomplicated; Z90.49 Acquired absence of other specified parts of digestive tract; Z72.89 Other problems related to lifestyle; Z80.3 Family history of malignant neoplasm of breast; Z82.49 Family history of ischemic heart disease and other diseases of the circulatory system; Z71.6 Tobacco abuse counseling
CPT/HCPCS: 36415; 36556; 36600; 71045; 71275; 74176; 80048; 80061; 80076; 80307; 81001; 82140; 82550; 82553; 82803; 83735; 83880; 84484; 85025; 85027; 85610; 93005; 93010; 93460; 96365; 96375; 96376; G0378; C1751; C1769; C1894; J0171; J0282; J0461; J1644; J1940; J2001; J2250; J2260; J2270; J2370; J2543; J3010; J7040; J7060; Q9967